=== PATIENT | female | born 1965 | race Caucasian/White ===

== ENCOUNTER → 2018-02-03 | Outpatient (CLI) | payer OTHER | LOC: M RAD 14:51 | DX: Z12.31 Encounter for screening mammogram for malignant neoplasm of breast (principal); Z80.3 Family history of malignant neoplasm of breast; Z80.42 Family history of malignant neoplasm of prostate | CPT/HCPCS: 77067 ==

== ENCOUNTER 2018-08-26 21:11 | Emergency (ER) | payer OTHER ==
[~2018-08-26] VITALS: Ht 170.2 cm; Wt 63.6 kg
[2018-08-26 21:11] VITALS: BP 118/63
[2018-08-26] MEDS ORDERED: FLUO40CA PO (22:20)
[2018-08-26] MEDS ORDERED: DERMABOND TOPICAL SKIN ADHESIVE TOP ONE (22:45)
[2018-08-26] MEDS ORDERED: ACETAMINOPHEN 325 MG TAB PO ONE (23:15)
--- NOTE | 2018-08-27 07:53 | REP ---
Clinical: Trauma. Fall. Technique: AP, lateral, bilateral oblique views of the left ankle. Findings: There is a very small avulsion fracture at the tip of the fibula / lateral malleolus along with multiple fractures involving the calcaneus. Impression: Nondisplaced fractures of the calcaneus and small avulsion fracture of the distal fibular tip. Electronically Signed by Alan George MD 08/27/2018 07:44 A
--- NOTE | 2018-08-27 13:34 | ED PDOC ---
Post-Departure Follow-Up left ankle film faxed to dr [email or web address] for fu Ranjana Woodson MD Aug 27, 2018 13:34
== END 2018-08-26 23:49 | disposition home or self-care (01) ==
LOC: M ED 21:11
DX: S71.011A Laceration without foreign body, right hip, initial encounter (principal); S92.002A Unspecified fracture of left calcaneus, initial encounter for closed fracture; S82.492A Other fracture of shaft of left fibula, initial encounter for closed fracture; W17.89XA Other fall from one level to another, initial encounter; Y92.89 Other specified places as the place of occurrence of the external cause; Z79.899 Other long term (current) drug therapy

== ENCOUNTER → 2019-02-16 | Outpatient (REF) | payer OTHER ==
[~2019-02-16] MED LIST: FLUO40CA PO
== END ==
LOC: M LAB REF 09:22
PROVIDERS: ATTEND Physician Assistant
DX: M54.5 Low back pain (principal)

== ENCOUNTER → 2019-02-16 | Outpatient (CLI) | payer OTHER ==
--- NOTE | 2019-02-16 19:36 | REP ---
Clinical: Left flank pain. Technique: Single supine view of the abdomen and pelvis. Comparison: None. Findings: Bowel gas pattern is nonspecific. Evidence of prior cholecystectomy noted. Urinary tract calcifications cannot be excluded. Phleboliths are noted in the pelvis. Skeletal structures demonstrate age-related changes. Impression: 1. Nonspecific bowel gas pattern. 2. Examination is insensitive for urinary tract calcification. Electronically Signed by Alan George MD 02/16/2019 07:28 P
[2019-02-16 20:45] LABS: BASO # 0.1 10^3/uL (0.0-0.2); BASO % 0.4 % (0.0-1.0); EOS # 0.1 10^3/uL (0.0-0.5); EOS % 1.1 % (0.0-3.0); HEMATOCRIT 35.6 % (36.0-47.0); HEMOGLOBIN 11.7 g/dl (12.0-15.5); LYMPH # 1.6 10^3/uL (1.5-5.0); LYMPH % 12.4 % (24.0-44.0); MEAN CORPUSCULAR HEMOGLOBIN 32.1 pg (27.0-33.0); MEAN CORPUSCULAR HGB CONC 32.9 g/dl (32.0-36.5); MEAN CORPUSCULAR VOLUME 97.8 fl (80.0-96.0); MONO # 1.1 10^3/uL (0.0-0.8); MONO % 8.5 % (0.0-5.0); NEUTROPHILS % 77.2 % (36.0-66.0); PLATELET COUNT, AUTOMATED 270 10^3/uL (150-450); RED BLOOD COUNT 3.64 10^6/uL (4.00-5.40); WHITE BLOOD COUNT 12.9 10^3/uL (4.0-10.0)
[2019-02-16 20:48] LABS: ALBUMIN 3.8 GM/DL (3.2-5.2); BILIRUBIN,TOTAL 0.5 MG/DL (0.2-1.0); CALCIUM LEVEL 9.3 MG/DL (8.5-10.1); CREATININE FOR GFR 1.02 MG/DL (0.55-1.30); GLOMERULAR FILTRATION RATE 59.9 (>51); POTASSIUM SERUM 3.3 MEQ/L (3.5-5.1); TOTAL PROTEIN 7.1 GM/DL (6.4-8.2)
[2019-02-16 20:54] LABS: ALBUMIN 3.8 GM/DL (3.2-5.2); BILIRUBIN,DIRECT 0.2 MG/DL (0.0-0.2); BILIRUBIN,TOTAL 0.5 MG/DL (0.2-1.0)
== END ==
LOC: M WUC 18:26
PROVIDERS: ATTEND Physician Assistant
DX: M54.5 Low back pain (principal)

== ENCOUNTER → 2020-11-16 | Outpatient (CLI) | payer OTHER ==
[2020-11-16 14:09] LABS: ALBUMIN 3.8 GM/DL (3.2-5.2); ALT/SGPT 23 U/L (12-78); BILIRUBIN,TOTAL 0.8 MG/DL (0.2-1.0); BLOOD UREA NITROGEN 8 MG/DL (7-18); CALCIUM LEVEL 9.5 MG/DL (8.5-10.1); CARBON DIOXIDE LEVEL 30 MEQ/L (21-32); CHLORIDE LEVEL 105 MEQ/L (98-107); CHOLESTEROL LEVEL 212 MG/DL (<200); CHOLESTEROL RISK RATIO 2.789 (<5); CREATININE FOR GFR 0.79 MG/DL (0.55-1.30); GLOMERULAR FILTRATION RATE > 60.0 (>51); GLUCOSE, FASTING 102 MG/DL (70-100); HDL CHOLESTEROL 76 MG/DL (>40); LDL CHOLESTEROL 124 MG/DL (<100); NON-HDL-C 136 MG/DL; POTASSIUM SERUM 4.5 MEQ/L (3.5-5.1); SODIUM LEVEL 141 MEQ/L (136-145); TOTAL PROTEIN 7.1 GM/DL (6.4-8.2); TRIGLYCERIDES LEVEL 58 MG/DL (<150)
== END ==
LOC: M WUC 08:29
PROVIDERS: ATTEND Nurse Practitioner Family
DX: Z00.00 Encounter for general adult medical examination without abnormal findings (principal)
CPT/HCPCS: 36415; 80053; 80061; G0472

== ENCOUNTER → 2021-11-25 | Outpatient (CLI) | payer OTHER ==
[2021-11-25 10:21] LABS: BASO # 0.1 10^3/uL (0.0-0.2); BASO % 0.9 % (0.0-1.0); EOS # 0.1 10^3/uL (0.0-0.5); EOS % 1.9 % (0.0-3.0); HEMOGLOBIN 13.8 g/dl (12.0-15.5); LYMPH # 1.5 10^3/uL (1.5-5.0); LYMPH % 24.3 % (24.0-44.0); MEAN CORPUSCULAR HEMOGLOBIN 31.6 pg (27.0-33.0); MEAN CORPUSCULAR HGB CONC 32.9 g/dl (32.0-36.5); MEAN CORPUSCULAR VOLUME 96.1 fl (80.0-96.0); MONO # 0.5 10^3/uL (0.0-0.8); MONO % 8.5 % (2.0-8.0); NEUTROPHILS # 4.1 10^3/uL (1.5-8.5); NEUTROPHILS % 64.2 % (36.0-66.0); PLATELET COUNT, AUTOMATED 276 10^3/uL (150-450); RED BLOOD COUNT 4.37 10^6/uL (4.00-5.40); WHITE BLOOD COUNT 6.3 10^3/uL (4.0-10.0)
[2021-11-25 11:02] LABS: ALBUMIN 4.2 GM/DL (3.2-5.2); ALT/SGPT 23 U/L (12-78); BILIRUBIN,TOTAL 0.6 MG/DL (0.2-1.0); BLOOD UREA NITROGEN 12 MG/DL (7-18); CALCIUM LEVEL 9.4 MG/DL (8.5-10.1); CARBON DIOXIDE LEVEL 30 MEQ/L (21-32); CHLORIDE LEVEL 105 MEQ/L (98-107); CHOLESTEROL LEVEL 245 MG/DL (<200); CHOLESTEROL RISK RATIO 3.181 (<5); CREATININE FOR GFR 0.89 MG/DL (0.55-1.30); GLOMERULAR FILTRATION RATE > 60.0 (>51); GLUCOSE, FASTING 94 MG/DL (70-100); HDL CHOLESTEROL 77 MG/DL (>40); LDL CHOLESTEROL 154 MG/DL (<100); NON-HDL-C 168 MG/DL; POTASSIUM SERUM 4.7 MEQ/L (3.5-5.1); SODIUM LEVEL 138 MEQ/L (136-145); TOTAL PROTEIN 7.6 GM/DL (6.4-8.2); TRIGLYCERIDES LEVEL 70 MG/DL (<150)
== END ==
LOC: M LAB 09:35
PROVIDERS: ATTEND Nurse Practitioner Family
DX: Z00.00 Encounter for general adult medical examination without abnormal findings (principal)

== ENCOUNTER → 2022-02-08 | Outpatient (CLI) | payer OTHER | LOC: M RAD 12:08 | PROVIDERS: ATTEND Surgery Vascular Surgery | DX: I87.2 Venous insufficiency (chronic) (peripheral) (principal); I83.813 Varicose veins of bilateral lower extremities with pain ==

== ENCOUNTER → 2023-01-01 | Outpatient (REF) | payer OTHER ==
[~2023-01-01] MED LIST changes: +FAMO20TA5 PO; +OMEP-173 PO
== END ==
LOC: M LAB REF 17:41
PROVIDERS: ATTEND Nurse Practitioner Family
DX: Z12.4 Encounter for screening for malignant neoplasm of cervix (principal)
CPT/HCPCS: 87624; G0123

== ENCOUNTER → 2023-03-16 | Outpatient (CLI) | payer OTHER ==
[2023-03-16 12:07] LABS: BASO # 0.1 10^3/uL (0.0-0.2); BASO % 1.2 % (0.0-1.0); EOS # 0.1 10^3/uL (0.0-0.5); EOS % 1.7 % (0.0-3.0); HEMATOCRIT 39.9 % (36.0-47.0); HEMOGLOBIN 13.4 g/dl (12.0-15.5); LYMPH # 1.5 10^3/uL (1.5-5.0); LYMPH % 19.8 % (24.0-44.0); MEAN CORPUSCULAR HEMOGLOBIN 31.8 pg (27.0-33.0); MEAN CORPUSCULAR HGB CONC 33.6 g/dl (32.0-36.5); MEAN CORPUSCULAR VOLUME 94.5 fl (80.0-96.0); MONO # 0.6 10^3/uL (0.0-0.8); MONO % 7.3 % (2.0-8.0); NEUTROPHILS # 5.3 10^3/uL (1.5-8.5); NEUTROPHILS % 69.7 % (36.0-66.0); PLATELET COUNT, AUTOMATED 273 10^3/uL (150-450); RED BLOOD COUNT 4.22 10^6/uL (4.00-5.40); WHITE BLOOD COUNT 7.6 10^3/uL (4.0-10.0)
[2023-03-16 12:36] LABS: ALBUMIN 3.9 G/DL (3.2-5.2); ALKALINE PHOSPHATASE 73 U/L (46-116); ALT/SGPT 21 U/L (7.0-40); AST/SGOT 15 U/L (<34); BILIRUBIN,TOTAL 0.4 MG/DL (0.3-1.2); BLOOD UREA NITROGEN 12 MG/DL (9-23); CARBON DIOXIDE LEVEL 29 MMOL/L (20-31); CHLORIDE LEVEL 107 MMOL/L (98-107); CHOLESTEROL LEVEL 224 MG/DL (<200); CHOLESTEROL RISK RATIO 3.04 (<5); CREATININE FOR GFR 0.69 MG/DL (0.55-1.30); GLOMERULAR FILTRATION RATE > 60.0 (>51); GLUCOSE, FASTING 97 MG/DL (60-100); HDL CHOLESTEROL 73.6 MG/DL (>40); LDL CHOLESTEROL 137.2 MG/DL (<100); NON-HDL-C 150.4 MG/DL; POTASSIUM SERUM 4.1 MMOL/L (3.5-5.1); SODIUM LEVEL 141 MMOL/L (136-145); TOTAL PROTEIN 6.9 G/DL (5.7-8.2); TRIGLYCERIDES LEVEL 66 MG/DL (<150)
== END ==
LOC: M LAB 11:29
PROVIDERS: ATTEND Nurse Practitioner Family
DX: Z00.00 Encounter for general adult medical examination without abnormal findings (principal); E78.2 Mixed hyperlipidemia

== ENCOUNTER 2023-07-04 11:28 | Day surgery (SDC) | payer OTHER ==
[~2023-07-04] VITALS: Ht 170.2 cm; Wt 63.7 kg
[~2023-07-04 11:28] MED LIST changes: +CIDA500T2 PO
[2023-07-04] MEDS: NS 1,000 ML IV ONE (11:43)
[2023-07-04] MEDS ORDERED: LIDOCAINE 2% 100MG/5ML SDV (FOR ANES.) As Ordered ONE (12:31)
[2023-07-04] MEDS ORDERED: propofoL 500 MG/50 ML VIAL As Ordered ONE (12:31)
[2023-07-04] MEDS ORDERED: GLYCOPYRROLATE INJ 0.2 MG/ML 2 ML VIAL As Ordered ONE (12:39)
[2023-07-04 13:02] VITALS: TEMP 97.9
[2023-07-04 13:20] VITALS: BP 132/75; O2SAT 98
== END 2023-07-04 13:28 | disposition home or self-care (01) ==
LOC: M OPP 11:28
PROVIDERS: ATTEND Internal Medicine Gastroenterology
DX: Z12.11 Encounter for screening for malignant neoplasm of colon (principal); D12.0 Benign neoplasm of cecum; Z86.010 Personal history of colon polyps; K21.9 Gastro-esophageal reflux disease without esophagitis; Z79.899 Other long term (current) drug therapy

== ENCOUNTER → 2023-07-08 | Outpatient (CLI) | payer OTHER | LOC: M WHC 08:24 | PROVIDERS: ATTEND Physician Assistant Medical | DX: R10.13 Epigastric pain (principal) ==

== ENCOUNTER → 2023-10-23 | Outpatient (CLI) | payer OTHER ==
[~2023-10-23] MED LIST changes: +ISOVUE-370 76% 100ML VIAL As Ordered ONE
== END ==
LOC: M RAD 08:13
PROVIDERS: ATTEND Physician Assistant Medical
DX: R10.13 Epigastric pain (principal); R93.3 Abnormal findings on diagnostic imaging of other parts of digestive tract; Z90.49 Acquired absence of other specified parts of digestive tract
CPT/HCPCS: 74178; Q9967

== ENCOUNTER → 2024-02-24 | Outpatient (CLI) | payer OTHER ==
[~2024-02-24] MED LIST changes: -ISOVUE-370 76% 100ML VIAL As Ordered ONE
[2024-02-24 16:03] LABS: BASO # 0.1 10^3/uL (0.0-0.2); BASO % 0.7 % (0.0-1.0); EOS # 0.1 10^3/uL (0.0-0.5); EOS % 1.2 % (0.0-3.0); HEMATOCRIT 38.6 % (36.0-47.0); HEMOGLOBIN 12.7 g/dl (12.0-15.5); LYMPH # 1.5 10^3/uL (1.5-5.0); LYMPH % 13.3 % (24.0-44.0); MEAN CORPUSCULAR HEMOGLOBIN 32.4 pg (27.0-33.0); MEAN CORPUSCULAR HGB CONC 32.9 g/dl (32.0-36.5); MEAN CORPUSCULAR VOLUME 98.5 fl (80.0-96.0); MONO # 1.2 10^3/uL (0.0-0.8); MONO % 10.4 % (2.0-8.0); NEUTROPHILS # 8.4 10^3/uL (1.5-8.5); PLATELET COUNT, AUTOMATED 275 10^3/uL (150-450); RED BLOOD COUNT 3.92 10^6/uL (4.00-5.40); WHITE BLOOD COUNT 11.4 10^3/uL (4.0-10.0)
[2024-02-24 16:25] LABS: ALBUMIN 3.7 G/DL (3.2-5.2); ALKALINE PHOSPHATASE 94 U/L (35-104); ALT/SGPT 21 U/L (7.0-40); AST/SGOT 17 U/L (<34); BILIRUBIN,TOTAL 0.6 MG/DL (0.3-1.2); BLOOD UREA NITROGEN 10 MG/DL (9-23); CALCIUM LEVEL 9.8 MG/DL (8.3-10.6); CARBON DIOXIDE LEVEL 31 MMOL/L (20-31); CHLORIDE LEVEL 104 MMOL/L (98-107); CHOLESTEROL LEVEL 210 MG/DL (<200); CHOLESTEROL RISK RATIO 3.16 (<5); CREATININE FOR GFR 0.83 MG/DL (0.55-1.30); GLOMERULAR FILTRATION RATE > 60.0 (>45); GLUCOSE, FASTING 97 MG/DL (74-106); HDL CHOLESTEROL 66.3 MG/DL (>40); LDL CHOLESTEROL 129.5 MG/DL (<100); NON-HDL-C 143.7 MG/DL; POTASSIUM SERUM 4.4 MMOL/L (3.5-5.1); SODIUM LEVEL 140 MMOL/L (136-145); TOTAL PROTEIN 7.1 G/DL (5.7-8.2); TRIGLYCERIDES LEVEL 71 MG/DL (<150)
== END ==
LOC: M RAD 15:20
PROVIDERS: ATTEND Nurse Practitioner Family
DX: Z00.00 Encounter for general adult medical examination without abnormal findings (principal); M25.531 Pain in right wrist